=== PATIENT | male | born 1970 | race Caucasian/White ===

== ENCOUNTER 2017-12-26 02:20 | Emergency (ER) | payer OTHER ==
[2017-12-26 02:32] VITALS: BP 115/79
[2017-12-26] MEDS ORDERED: Bacitracin/Neomycin/Polymyxin B Oint 0.9 GM U/D Packet TOP ONE (02:33)
--- NOTE | 2017-12-26 03:30 | EDM.PDOC ---
ED HPI GENERAL MEDICAL PROBLEM - General Chief Complaint: Laceration Stated Complaint: laceration Time Seen by Provider: 12/26/17 03:00 Source of Information: Reports: Patient History Limitations: Reports: No Limitations - History of Present Illness INITIAL COMMENTS - FREE TEXT/NARRATIVE: H pattern fell on patient's right hand while at work ([employer]) tonight. Right hand contusion with laceration involving 2nd finger, avulsion of skin 4th finger , and mild abrasions. Has some swelling of involved fingers. Able to flex and extend fingers easily. Moore not feel that anything is broken. No numbness/ tingling noted. Tetanus is UTD. No other complaints/injuries. 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 [No Known Home Meds] 02/19/15 [History] Past Medical History - Past Health History Medical/Surgical History: Denies Medical/Surgical History HEENT History: Reports: Impaired Vision Cardiovascular History: Reports: None Respiratory History: Reports: None Gastrointestinal History: Reports: None Genitourinary History: Reports: None Musculoskeletal History: Reports: Fracture, Other (See Below) Other Musculoskeletal History: right tip index finger fracture Neurological History: Reports: None Psychiatric History: Reports: None Endocrine/Metabolic History: Reports: Obesity/BMI 30+ Oncologic (Cancer) History: Reports: None Dermatologic History: Reports: None - Past Surgical History HEENT Surgical History: Reports: Oral Surgery GI Surgical History: Reports: None Male Surgical History: Reports: None Social & Family History - Tobacco Use Smoking Status *Q: Former Smoker Years of Tobacco use: 22 Used Tobacco, but Quit: Yes Month/Year Tobacco Last Used: 2014 Second Hand Smoke Exposure: Yes - Alcohol Use Days Per Week of Alcohol Use: 2 Number of Drinks Per Day: 6 Total Drinks Per Week: 12 - Recreational Drug Use Recreational Drug Use: No ED ROS GENERAL - Review of Systems Review Of Systems: ROS reveals no pertinent complaints other than HPI. ED EXAM, SKIN/RASH Exam: See Below Exam Limited By: No Limitations General Appearance: Alert, WD/WN, No Apparent Distress Eye Exam: Bilateral Eye: EOMI, PERRL Head: Atraumatic, Normocephalic Neck: Supple Respiratory/Chest: No Respiratory Distress Peripheral Pulses: 2+: Radial (R) Extremities: Normal Range of Motion (right hand), Normal Capillary Refill Neurological: Alert, Oriented, Normal Cognition, Normal Gait, No Motor/Sensory Deficits Psychiatric: Normal Affect, Normal Mood Skin: Warm, Dry, Other (avulsion of skin noted volar aspect 4th right finger near MIP, laceration of 2nd digit along inner crease of MIP, small abrasions noted dorsal aspects of 2nd and 4th fingers at MIP joints. 2nd and 4th fingers mildly swollen. No other point tenderness noted involving hand. NVI/tendon function appeared to be intact. ) ED SKIN PROCEDURES - Laceration/Wound Repair Right Middle Ventral Finger Lac/Wound length In cm: 2 Appearance: Subcutaneous, Linear, Clean Distal NVT: Neuro & Vascular Intact, No Tendon Injury Anesthetic Type: Local Local Anesthesia - Lidocaine (Xylocaine): 1% Plain Local Anesthetic Volume: 3cc Skin Prep: Providone-Iodine (Betadine) Exploration/Debridement/Repair: Wound Explored, In a Bloodless Field, Explored to Base Closed with: Sutures Suture Size: 3-0 # of Sutures: 3 Suture Type: Nylon, Interrupted Drain Placement: No Sterile Dressing Applied: Nurse Tetanus Status Addressed: Yes Complications: No Course - Vital Signs Last Recorded V/S: Last Vital Signs Temp 36.9 C 12/26/17 02:26 Pulse 91 12/26/17 02:26 Resp 20 12/26/17 02:26 BP 115/79 12/26/17 02:26 Pulse Ox 99 12/26/17 02:26 - Orders/Labs/Meds Orders: Active Orders 24 hr Category Date Time Status Wound Care [RC] ONETIME Care 12/26/17 02:33 Active Meds: Medications Discontinued Medications Generic Name Dose Route Start Last Admin Trade Name Larry PRN Reason Stop Dose Admin Lidocaine HCl 5 ml 12/26/17 02:33 12/26/17 03:16 Xylocaine-Mpf 1% INJECT 12/26/17 02:34 5 ml ONETIME ONE Administration Neomycin/Polymyxin/Bacitracin 1 each 12/26/17 02:33 12/26/17 03:16 Triple Antibiotic Oint TOP 12/26/17 02:34 1 each ONETIME ONE Administration - Re-Assessments/Exams Free Text/Narrative Re-Assessment/Exam: 12/26/17 03:36 Hand soaked in Betadine by nurse. Laceration repair for MIP area of 2nd finger on right. Avulsion skin flap 4th finger steri stripped in place, no requirement for suturing. Antibiotic ointment applied to these areas and small dorsal abrasions of same fingers. Dressing applied. Patient refused xray at this time as he felt it was unneeded/didn't feel that fingers were broken. Wound care discussed with patient. Departure - Departure Time of Disposition: 03:27 Disposition: Home, Self-Care 01 Condition: Good Clinical Impression: Laceration of right index finger Qualifiers: Encounter type: initial encounter Damage to nail status: without damage Foreign body presence: without foreign body Qualified Code(s): S61.210A - Laceration without foreign body of right index finger without damage to nail, initial encounter Avulsion of skin of finger without complication Qualifiers: Encounter type: initial encounter Qualified Code(s): S61.209A - Unspecified open wound of unspecified finger without damage to nail, initial encounter Contusion of hand, right Qualifiers: Encounter type: initial encounter Qualified Code(s): S60.221A - Contusion of right hand, initial encounter Abrasion of finger of right hand Qualifiers: Encounter type: initial encounter Qualified Code(s): S60.419A - Abrasion of unspecified finger, initial encounter - Discharge Information Instructions: Stitches, Tom, or Adhesive Wound Closure, [id number] Referrals: PCP,None [Primary Care Provider] - Forms: ED Department Discharge Additional Instructions: Have sutures removed next Friday. Follow up if any signs of infection develop. Wound care as discussed. - My Orders Last 24 Hours: My Active Orders 12/26/17 02:33 Wound Care [RC] ONETIME - Assessment/Plan Last 24 Hours: My Active Orders 12/26/17 02:33 Wound Care [RC] ONETIME
== END 2017-12-26 03:50 | disposition home or self-care (01) ==
LOC: LL.ED 02:20
DX: S61.210A Laceration without foreign body of right index finger without damage to nail, initial encounter (principal); Z87.891 Personal history of nicotine dependence; S61.204A Unspecified open wound of right ring finger without damage to nail, initial encounter; S60.221A Contusion of right hand, initial encounter; Y99.0 Civilian activity done for income or pay; W20.8XXA Other cause of strike by thrown, projected or falling object, initial encounter
CPT/HCPCS: 12001; 99283